=== PATIENT | female | born 1990 | race Caucasian/White ===

== ENCOUNTER → 2019-03-22 10:46 | Outpatient (CLI) | payer SELFPAY ==
[2019-03-13 15:18] VITALS: BMI 29.9
--- NOTE | 2019-03-22 10:51 | ECHOCS_ITS ---
Reason For Study: [place] Procedure This was a 2D Doppler, Color Flow transthoracic echocardiogram. Contrast injection was performed. Exam performed in department. Left Ventricle Normal LV size. Left ventricular systolic function is normal. The estimated ejection fraction is 60 %. Normal diastology for age. No regional wall motion abnormalities noted. Right Ventricle Normal RV size. Normal systolic function. Atria Normal left atrium. Normal right atrium. Bubble contrast study negative for right to left interatrial shunt. Mitral Valve Normal mitral valve. Tricuspid Valve Normal tricuspid valve. Mild tricuspid valve insufficiency. Pulmonary artery systolic pressure is 30 mmHg. Aortic Valve Normal aortic valve. Trisinus/trileaflet aortic valve. Pulmonic Valve Normal pulmonic valve. Great Vessels Normal aortic root. The pulmonary artery is normal size. Normal inferior vena cava. Pericardium/Pleural No pericardial effusion. Medication 22 gauge I.V. with prn adaptor inserted into right arm. Diluted definity 3ml given slow IV push to enhance endocardial definition. Performed a rapid injection of agitated mix of 9 cc saline and 1cc air to assess for atrial septal defect. MMode/2D Measurements & Calculations LVIDd: 4.6 cm IVSd: 0.82 cm LA dimension: 3.9 cm LVIDs: 2.9 cm LVPWd: 0.88 cm RVDd: 3.2 cm FS: 37.0 % LAV(MOD-bp): 41.4 ml LA A4 area: 16.2 cm2 RA A4 area: 15.4 cm2 LAV(MOD-bp) Indexed: 21.6 ml/m2 LAV(MOD-sp2): 45.4 ml LAV(MOD-sp4): 35.3 ml Time Measurements MV dec time: 0.20 sec Doppler Measurements & Calculations MV E max te: 101.4 cm/sec Lat Peak E' Et: 16.0 cm/sec Med Peak E' Te: 9.8 cm/sec MV A max te: 80.3 cm/sec E/E' lat: 6.3 E/E' med: 10.3 MV E/A: 1.3 MV V2 max: 115.6 cm/sec MV P1/2t max te: 115.6 cm/sec Ao V2 max: 157.8 cm/sec MV max P.3 mmHg MV P1/2t: 86.1 msec Ao max P.0 mmHg MV V2 mean: 56.0 cm/sec MV dec slope: 392.9 cm/sec2 MV mean P.5 mmHg MV V2 VTI: 36.2 cm MVA(P1/2t): 2.6 cm2 LV V1 max: 141.6 cm/sec PA V2 max: 105.0 cm/sec TR max te: 256.6 cm/sec LV V1 max P.0 mmHg TR max P.3 mmHg Interpretation Summary Normal LV size. Left ventricular systolic function is normal. The estimated ejection fraction is 60 %. Bubble contrast study negative for right to left interatrial shunt. Structurally normal valves. Ordering Physician: Edgardo Zavala Referring Physician: Edgardo Zavala Performed By: Brodwolf, Evan, RCS
== END ==
PROVIDERS: Referring Provider Internal Medicine Cardiovascular Disease; Visit Provider Internal Medicine Cardiovascular Disease
DX: R01.1 Cardiac murmur, unspecified (principal)
CPT/HCPCS: 93306; Q9957; A4216; C8929